=== PATIENT | female | born 1945 | race Caucasian/White ===

== ENCOUNTER 2016-10-12 10:59 | Emergency (ER) | payer MEDICARE ==
[~2016-10-12] VITALS: Ht 167.6 cm; Wt 87.3 kg
[~2016-10-12 10:59] MED LIST: MECL-114 PO
[2016-10-12 11:02] VITALS: BP 147/93; PULSE 93; RESP 20; O2SAT 95
--- NOTE | 2016-10-12 11:47 | ED.REPORT ---
HPI-Dyspnea / Wheezing Date of Service Oct 12, 2016 ED Provider: Doc,Ed MD The patient is a 71 year old female with history of COPD and emphysema, who presents to the emergency department complaining of worsening shortness of breath. Her breathing is worse when lying flat. Over the last 4 days she has also experienced a productive cough, yellow sputum, chest discomfort, chills, malaise, and fatigue. She does not currently smoke tobacco. She denies fever, hemoptysis, nausea, vomiting, diarrhea, dysuria or hematuria. Nursing Notes Stated Complaint: CHEST PAIN/DIFFICULTY BREATHING Chief Complaint: Respiratory Complaints Nursing Notes Reviewed: Yes Allergies: Coded Allergies: Opioids - Morphine Analogues (Verified Allergy, Unknown, SWELLING/ITCHING ALL OVER, N/V, 05/04/13) Sardine (Verified Allergy, Unknown, ANAPHYLAXIS, 05/04/13) codeine (Verified Allergy, Unknown, 06/11/14) diazepam (Verified Allergy, Unknown, 06/11/14) hydrocodone bitartrate (Verified Allergy, Unknown, SWELLING/ITCHING ALL OVER, N/V, 05/04/13) hydromorphone (Verified Allergy, Unknown, SWELLING/ITCHING ALL OVER, N/V, 05/04/13) oxycodone (Verified Allergy, Unknown, SWELLING/ITCHING ALL OVER, N/V, 05/04) Scheduled Meclizine (Bonine) 25 Mg Tab.chew 25 MG PO TID General Time Seen by MD: 11:47 Chief Complaint Shortness of breath Hx Obtained From: Patient Arrived By: Walk-in Sudden in Onset?: No Onset Occurred: 3 days ago Symptom Duration: Since onset Location: : Chest left: Chest right Quality: Painful Radiation: : Does not radiate Severity: Current: Moderate Severity: Maximum: Moderate Recent Healthcare: No recent doctor visit, No recent hospitalization Similar Sx Previous: Yes Past Medical History Past Medical History COPD Emphysema Reports: Hyperlipidemia Past Surgical History Lumpectomy Ulnar nerve Reports: Hysterectomy Reports: Back/neck surgery Family History Reports: Coronary artery disease Smoking History Former Smoker Social History Alcohol Use: Denies alcohol use Drug Use: Denies drug use Other Social History: Lives alone, Local resident Ambulatory Status Independent Review of Systems Constitutional: Reports: Chills, Fatigue, Malaise, Denies: Fever Ears / Nose / Throat: Reports: Nasal congestion Respiratory: Reports: Dyspnea on exertion, Prod cough, yellow, Shortness of breath Cardiovascular: Reports: Chest pain Complete sys rev & neg: except as marked. GI: Denies: Abdominal pain, Diarrhea, Nausea, Vomiting Female: Denies: Dysuria, Hematuria Physical Exam Initial Vital Signs Vital Signs (First) Date Time Temp Pulse Resp B/P Pulse Ox O2 Delivery O2 Flow Rate FiO2 10/12/16 11:02 37.2 93 20 147/93 95 Room Air Initial VS: Reviewed Head / Eyes: Atraumatic, Normocephalic, PERRL ENT: Mucous membranes moist, Conjunctiva normal, No scleral icterus Abdomen / GI: Soft, Non-tender, No guarding, No rebound, No distention Lymphatic: No lymphadenopathy Extremities: Vascular intact, Neuro intact, No swelling, No tenderness Skin: Warm, Dry, No cyanosis Neurologic: Alert, Oriented, Nonfocal Psychiatric: Mood/affect normal, Behavior normal, Normal thought content General/Constitutional: Awake, Alert Neck: Atraumatic, Supple, No meningismus, Full range of motion, No swelling, Non-tender, No masses Respiratory / Chest: Breath sounds = bilat, No respiratory distress, No rales, No rhonchi, No chest tenderness, No chest wall deformity Wheezing / Retractions: Positive: Wheezing expiratory, Wheezing mild Cardiovascular: Heart rate NL, Regular rhythm, Heart sounds NL, No gallop, No murmurs, No rubs, Peripheral circulation NL Lower Extremity / Pelvis / MS: No swelling, Neurologic intact, Vascular intact , No edema Interpretation & Diagnostics Lab Results Interpretation Result Diagram: 10/12/16 1209 10/12/16 1209 Test 10/12/16 12:09 White Blood Count 3.6th/mm3 (3.8-10.1) Red Blood Count 4.78mil/mm3 (3.90-5.20) Hemoglobin 14.0g/dL (12.0-15.6) Hematocrit 42.9% (35.0-46.0) Mean Corpuscular Volume 89.7fL (81-100) Mean Corpuscular Hemoglobin 29.3pg (27.0-35.0) Mean Corpuscular Hemoglobin Concent 32.6% (32.0-37.0) Red Cell Distribution Width 13.7% (12.3-15.4) Platelet Count 233bil/L (150-400) Neutrophils (%) (Auto) 62.0% (40-74) Lymphocytes (%) (Auto) 24.1% (14-46) Monocytes (%) (Auto) 11.6% (4-12) Eosinophils (%) (Auto) 1.4% (0-5) Basophils (%) (Auto) 0.6% (0-3) Sodium Level 140mEq/L (134-144) Potassium Level 4.1mEq/L (3.5-5.2) Chloride Level 104mEq/L (97-108) Carbon Dioxide Level 25mmol/L (18-29) Blood Urea Nitrogen 7mg/dL (8-27) Creatinine 0.65mg/dL (0.57-1.00) Estimat Glomerular Filtration Rate 129mL/min (>59) Glucose Level 112mg/dL (60-99) Calcium Level 9.1mg/dL (8.5-10.1) Total Bilirubin 0.2mg/dL (0.0-1.2) Aspartate Amino Transf (AST/SGOT) 15U/L (0-50) Alanine Aminotransferase (ALT/SGPT) 18U/L (0-32) Alkaline Phosphatase 80U/L (25-165) Total Protein 6.9g/dL (6.4-8.4) Albumin 4.0g/dL (3.4-5.0) X-Ray Chest Interpretation Chest Xray Interpretation: IMPRESSION: No acute cardiopulmonary disease. Dictated by: Devante Naqvi M.D. on 10/12/2016 at 12:40 Interpretation / Wet Read by: Interpret - Radiologist Re-Eval/Medical Decision Source of Hx: Old records Re-Evaluation/Progress : Time of Eval: 12:55 Re-Evaluation/Progress Note: Rechecked the patient. She is feeling better. Discussed workup results, diagnosis, and plan for discharge. All questions were addressed. Counseled Regarding: Diagnosis, Lab results, Need for follow-up, When/why to return to ED Discharge & Departure Impression: Primary Impression: COPD exacerbation Disposition: Home Discharge Condition All VS Reviewed: Yes Condition: Stable Patient Instructions: Chronic Obstructive Pulmonary Disease (ED) Additional Instructions: Thank you for entrusting us with your care today. Your labs and chest x-ray today are reassuring. There is no sign of a pneumonia at this time. Take the azithromycin and prednisone as prescribed. Followup with your regular doctor in the next few days for recheck. Return to the emergency department for difficulty breathing, chest pain, extremity swelling, fever, chills, vomiting, or any other new or concerning symptoms. Referrals: Chemo Wood MD (PCP) Scribe Attestation Portions of this note were transcribed by Ann Marie Barnes. I, Dr. Hugh Ramirez personally performed the history, physical exam and medical decision-making; I reviewed and confirmed the accuracy of the information in the transcribed note. Signed by: Reese Hernandez, 10/12/2015 and 1300. copies to: Chemo Wood MD, Kirk H MD Oct 12, 2016 11:47 Ann Marie Barnes Oct 12, 2016 11:52
[2016-10-12 12:19] LABS: BASOPHILS % (AUTO) 0.6 % (0-3); EOSINOPHILS % (AUTO) 1.4 % (0-5); MONOCYTES % (AUTO) 11.6 % (4-12); Mean Corpuscular Hemoglobin 29.3 pg (27.0-35.0); Mean Corpuscular Volume 89.7 fL (81-100); Platelet Count 233 bil/L (150-400)
--- NOTE | 2016-10-12 12:42 | DRSVH ---
PROCEDURE: X-RAY CHEST, TWO VIEWS ([id number]) INDICATIONS: 71 year-old female with cough for 4 days, and COPD. TECHNIQUE: 2 views of the chest were acquired. COMPARISON: [facility], CR, XR CHEST 1VW (PORTABLE), 07/16/2016, 15:27. [facility], CR, CHEST 1VW (PORTABLE), 05/04/2013, 14:35. [facility], CR, CHEST 2VW, 2, 17:45. FINDINGS: Surgical changes and devices: None. Lungs and pleura: No pleural effusions or pneumothorax. Lungs are clear. Mediastinum: Mediastinal contours are normal. Heart size is normal. There is aortic atherosclerosi s. Bones and chest wall: No suspicious bony abnormalities. Soft tissues appear unremarkable. IMPRESSION: No acute cardiopulmonary disease. Dictated by: Devante Naqvi M.D. on 10/12/2016 at 12:40 Approved by: Devante Naqvi M.D. on 10/12/2016 at 12:40
[2016-10-12] MEDS ORDERED: AZIT250T4 PO (12:59)
[2016-10-12] MEDS ORDERED: PRE20 PO (12:59)
== END 2016-10-12 13:00 | disposition home or self-care (01) ==
LOC: SED 10:59
DX: J44.1 Chronic obstructive pulmonary disease with (acute) exacerbation (principal); E78.5 Hyperlipidemia, unspecified; Z87.891 Personal history of nicotine dependence; Z88.5 Allergy status to narcotic agent; Z91.013 Allergy to seafood